=== PATIENT | male | born 1950 | race Caucasian/White ===

== ENCOUNTER → 2018-08-26 | Outpatient (CLI) | payer MEDICARE, BC ==
[2015-04-16 20:03] VITALS: BP 109/78
--- NOTE | 2018-08-26 14:47 | RAD ---
Radiographic bone survey for right hip pain, history of multiple myeloma. FINDINGS: Single view of the skull, chest, pelvis, right humerus, left humerus, right forearm, left forearm, right femur, left femur, right tib-fib, left tib-fib, and 2 views of the cervical spine, thoracic spine, and lumbar spine are all evaluated. Several circumscribed punched out appearing lytic lesions are seen throughout the calvaria consistent with patient's history of multiple myeloma. No lung parenchymal abnormalities are seen. Cardiomediastinum is grossly unremarkable. No suspicious osseous abnormalities of the bony thorax are identified. There is some degenerative curvature of the thoracic spine. Bony pelvis is grossly unremarkable as well, with no discrete osteolytic or osteoblastic bone lesions. Cervical spine is notable for advanced degenerative disc disease at C4-5, C5-6, and C6-7. Alignment is maintained. Prevertebral soft tissues are grossly unremarkable. No discrete suspicious osseous lesions. Thoracic spine is notable for advanced degenerative disc disease at virtually all levels. There is an old compression deformity at T12. Lumbar spine is notable for advanced degenerative disc disease at L5-S1, with a transitional vertebral body also noted. There is extensive facet arthrosis in the lower lumbar levels. No discrete osteolytic or osteoblastic bone lesions are seen within the thoracic or lumbar spine. Within the distal right femoral metadiaphysis there are 2 discrete 4 mm lytic lesions which may be due to the patient's underlying myeloma. The left femur and bilateral tib fibs are grossly unremarkable. 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 In the proximal right humerus, there are a couple of very subtle 4 mm lucent lesions which also may be related to patient's underlying myeloma. Left humerus and both forearms are unremarkable. IMPRESSION: 1. Several small circumscribed lytic lesions throughout the calvaria ranging to 8 mm in diameter, suspicious for myelomatous lesions. 2. 2 discrete 4 mm lesions within the distal right femur and a few similar-appearing subtle lesions within the proximal right humerus which may also be myelomatous lesions. 3. Advanced degenerative changes of the cervical, thoracic, and lumbar spine at multiple levels. 4. 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 5. Other chronic changes as described. Electronically signed by: Raffi Lu MD (08/26/2018 2:43 PM) [id number]
== END | disposition home or self-care (01) ==
LOC: RAD 11:36
PROVIDERS: ATTEND Internal Medicine Hematology & Oncology
DX: C90.01 Multiple myeloma in remission (principal); M50.323 Other cervical disc degeneration at C6-C7 level; M51.37 Other intervertebral disc degeneration, lumbosacral region; M51.34 Other intervertebral disc degeneration, thoracic region; M47.896 Other spondylosis, lumbar region; Z88.0 Allergy status to penicillin; Z88.8 Allergy status to other drugs, medicaments and biological substances; Z91.018 Allergy to other foods
CPT/HCPCS: 77075

== ENCOUNTER → 2021-03-28 | Outpatient (CLI) | payer MEDICARE, BC ==
[2015-04-16 20:03] VITALS: BP 109/78
[~2021-03-28] MED LIST: ACYC800T88 PO; AMLO10TA4 PO; ARIP5TAB13 PO; ASPI325T8 PO; CYCL10TA2 PO; DIPH25CA58 PO; DOCU-109 PO; GADOTERATE 7.5 MMOL/15ML VIAL. IVP ONE; HYDR-2769 PO; HYDR25TA PO; KETO15CR2 TP; LENA15CA PO; LORA0.5T96 PO; OMEP20CA16 PO; ONDA4TAB7 PO; OXYM10TA3 PO; TEMA15CA PO; TRIA15OI TP; VENL150C PO
--- NOTE | 2021-03-28 18:11 | KCIC ---
MRI of the lumbar spine without and with contrast 03/28/2021 CLINICAL HISTORY: Multiple myeloma. Low back pain which radiates down the left hip. TECHNIQUE: Unenhanced T1-weighted and T2-weighted sagittal and axial and inversion recovery sagittal images of the lumbar spine were obtained. After the intravenous administration 18 cc of Clariscan, en hanced fat saturated T1-weighted sagittal and axial images of the lumbar spine were obtained. FINDINGS: Comparison study is dated 08/26/2018. L5 is noted to be sacralized. A hypoplastic disc is seen at L5-S1. Minimal lateral curvature of the c ervical spine is seen convex to the left. Degenerative signal changes are seen involving all of the d isks of the lumbar spine. Degenerative signal changes are seen within the marrow surrounding these di scs. Loss of height of the L3-4 and L4-5 discs is noted. Schmorl's node formation is seen involving t he superior endplate of the L2 vertebral body. The conus medullaris is within normal limits in morpho logy, position, and signal characteristics. No area of abnormal contrast enhancement is noted. An area of increased signal intensity is seen involving the left aspect of the L5 vertebral body on t he T1-weighted images which measures 2.5 cm in greatest diameter. This is increased signal intensity on the T2-weighted images and inversion recovery images. This could represent areas of multiple myelo ma. No extension into the central spinal canal is seen. No additional mass lesion is seen. The L1-2 disc space is a mild generalized disc bulge. Degenerative changes are seen involving the fac et joints bilaterally. These findings do not result in significant central spinal canal or neural for aminal stenosis. At the L2-3 disc space is a moderate generalized disc bulge. This is eccentric to the left. Degenerat maria antonia changes are seen involving the facet joints bilaterally. There is moderate ligamentum flavum hype rtrophy bilaterally. There are small facet joint effusions bilaterally. These findings when combined result in mild to moderate central spinal canal stenosis. Mild to moderate left greater than right ne ural foraminal stenosis is seen. At the L3-4 disc space there is a mild to moderate generalized disc bulge. Degenerative changes are s een involving the facet joints bilaterally. There is moderate ligamentum flavum hypertrophy bilateral ly. These findings when results in mild central spinal canal stenosis. Mild bilateral neural foramina l stenosis is seen. At the L4-5 disc space there is a moderate generalized disc bulge. 2 the left. Degenerative changes a re seen involving the facet joints, left greater than right. There is moderate ligamentum flavum hype rtrophy bilaterally. These findings when combined result in mild central spinal canal stenosis. Mild to moderate left greater than right neural foraminal stenosis is seen. The L5-S1 disc spaces are within normal limits. IMPRESSION: 1. . 2.5 cm area of signal abnormality is seen involving the left aspect of the L5 vertebral body whi ch may represent an area of multiple myeloma. No extension of tumor into the central spinal canal is seen. 2. . The changes of degenerative disc disease are seen throughout the lumbar spine. These findings re sults in mild to moderate central spinal canal stenosis at L2-3, mild central spinal canal stenosis a t L3-4 and L4-5. Mild to moderate left greater than right neural foraminal stenosis is seen at L2-3. Mild bilateral neural foraminal stenosis is seen at L3-4. Mild to moderate left greater than right ne ural foraminal stenosis is seen at L4-5. Electronically signed by: Louis Paul MD (03/28/2021 6:09 PM) [id number]
--- NOTE | 2021-03-29 08:57 | KCIC ---
Examination: MRI pelvis without and with IV contrast HISTORY: History of bone metastasis, multiple myeloma COMPARISON: None available TECHNIQUE: Multiplanar, multisequence MR imaging of the pelvis were performed without and with IV con trast. IV contrast used was 18 cc of clariscan FINDINGS: The bilateral femoral heads are within the acetabula. Mild joint space loss and bilateral hip joint l ikely degenerative changes The attachment of the hamstring tendon to the ischial tuberosity, attachment of the gluteal tendons t o the greater trochanter, attachment of the iliopsoas tendon to the lesser trochanter and the attachm ent of the rectus femoris tendon to the anterior inferior iliac spine grossly appears intact. There is a focal signal abnormality identified in the L5 vertebral body probably focus of multiple my eloma, as described on the MR lumbar spine report. No evidence of enhancing lesion identified in the pelvis region. IMPRESSION: 1. No evidence of enhancing lesion identified in the pelvis region. 2. There is a focal signal abnormality identified in the L5 vertebral body probably focus of multipl e myeloma, as described on the MR lumbar spine report. Electronically signed by: Jason Iyer MD (03/29/2021 8:54 AM) [id number]
== END ==
LOC: KCIC MRI 12:28
PROVIDERS: ATTEND Internal Medicine
DX: C90.30 Solitary plasmacytoma not having achieved remission (principal); M47.816 Spondylosis without myelopathy or radiculopathy, lumbar region; M51.36 Other intervertebral disc degeneration, lumbar region; M48.061 Spinal stenosis, lumbar region without neurogenic claudication; M51.46 Schmorl's nodes, lumbar region
CPT/HCPCS: 72158; 72197; 82565; A9575